=== PATIENT | male | born 1960 | race Caucasian/White ===

== ENCOUNTER 2021-01-27 09:13 | Emergency (ER) | payer OTHER, SELFPAY ==
[2021-01-27 09:25] VITALS: BP 155/108; PULSE 108; RESP 16; TEMP 35.5; O2SAT 96
--- NOTE | 2021-01-27 09:39 | ED.ANXIETY ---
HPI - Anxiety General Chief Complaint: Anxiety Stated Complaint: panick attack Source: patient and RN notes reviewed Mode of arrival: ambulatory Limitations: no limitations History of Present Illness HPI narrative: says patient states he has been having the worst anxiety that he has had in a long time. It has been going on for the last 2 days. He even tried some marijuana from an electronic cigarette but all it did was make his head spin did not really help his anxiety. He says he is just shaking all over. complaint: anxiety Onset (ago): day(s) (2) Severity: severe Quality: constant Place: home History of similar episodes: Yes Provoking factors: none known Relieving factors: nothing Exacerbating factors: nothing Associated symptoms: denies other symptoms Related Data Home Medications Medication Instructions Recorded Confirmed amitriptyline 100 mg PO HS 01/27/21 01/27/21 hydroxyzine pamoate 25 mg PO HS 01/27/21 01/27/21 trazodone 01/27/21 trazodone 50 mg PO HS 01/27/21 01/27/21 Allergies Allergy/AdvReac Type Severity Reaction Status Date / Time No Known Allergies Allergy Verified 01/27/21 09:30 Review of Systems Review of Systems: All systems reviewed & are unremarkable except as noted in HPI and below PMFSH Past Medical History Medical History (Updated 01/27/21 @ 11:31 by Peña Santos MD) Anxiety Surgical History Surgical History (Updated 01/27/21 @ 11:31 by Peña Santos MD) H/O shoulder surgery Previous back surgery left Social History Social History (Updated 01/27/21 @ 11:31 by Peña Santos MD) Smoking packs per day: 1.5 Smoking cigarettes per day: 30.0 Smoking status: Current every day smoker Tobacco type: cigarettes Substance use type: marijuana Exam Const: General: healthy appearing, no acute distress and alert Nutritional Appearance: well nourished Orientation/consciousness: patient oriented x3 HENMT: Head: normal to inspection Ears: external ears normal Mouth: Yes moist mucous membranes Eyes: Conjunctivae: conjunctivae normal Pupils: Equal, round and reactive pupils present EOM: EOMs intact bilaterally Neck: Neck: normal visual inspection Resp: Effort & Inspection: normal respiratory effort Auscultation: clear to auscultation bilaterally Cardio: Rate: regular rate and tachycardic GI: GI Palp: Yes Soft to palpation and No Tenderness to palpation present (GI) Auscultation: normal bowel sounds Back/Spine/Pelvis: Cervical Spine: cervical ROM normal Thoracic/Lumbar Spine: thoraco-lumbar ROM normal Skin: General skin exam: normal color Rashes: no rashes Neuro: General: patient oriented x3, moves all extremities, no meningeal signs, no focal motor deficits and CN's II-XI intact bilaterally Speech: normal speech Gait exam (Neuro): Normal gait present Extrem: General: normal to inspection and no clubbing, cyanosis or edema Psych: Appearance: grossly normal and well kempt Mental Status: mental status grossly normal Affect: Anxious affect present Attitude: cooperative Thought content: Yes Normal thought content present and No Suicidality present Course Vital Signs Vital signs: Vital Signs Temperature 35.5 C L 01/27/21 09:25 Pulse Rate 108 H 01/27/21 09:25 Respiratory Rate 16 01/27/21 09:25 Blood Pressure 155/108 H 01/27/21 09:25 Pulse Oximetry 96 01/27/21 09:25 Temperature 35.5 C L 01/27/21 09:25 Pulse Rate 88 01/27/21 11:11 Respiratory Rate 20 01/27/21 11:11 Blood Pressure 134/83 01/27/21 11:11 Pulse Oximetry 94 01/27/21 11:11 MDM - Anxiety Lab Data Labs: Lab Results 01/27/21 Range/Units 10:13 Urine Opiates Screen Negative (Negative) Urine Methadone Screen Negative (Negative) Ur Barbiturates Screen Negative (Negative) Ur Phencyclidine Scrn Negative (Negative) Ur Amphetamine Screen Negative (Negative) U Benzodiazepines Scrn Positive A (Negative) Urine Cocaine Scr
[2021-01-27] MEDS: chlordiazePOXIDE (*CRX) 25 MG CAPSULE PO (09:56)
--- NOTE | 2021-01-27 10:01 | PC.NURSE ---
Pt aware of need for urine specimen. Pt provided a urinal and shown where the restroom is. Pt states he will try here soon. Will continue to monitor.
[2021-01-27 10:02] VITALS: BP 140/91; PULSE 88; RESP 16; O2SAT 95
[2021-01-27 10:28] LABS: Amphetamine Screen Urine Negative (Negative); Barbiturate Screen Urine Negative (Negative); Benzodiazepines Screen Urine Positive (Negative); Cannabinoid Screen Urine Negative (Negative); Cocaine Screen Urine Negative (Negative); Methadone Screen Urine Negative (Negative); Opiate Screen Urine Negative (Negative); Phencyclidine Screen Urine Negative (Negative)
[2021-01-27 11:11] VITALS: BP 134/83; PULSE 88; RESP 20; O2SAT 94
--- NOTE | 2021-01-27 11:11 | PC.NURSE ---
Pt resting on stretcher. States he is feeling better and no longer shaking. Pt has walked to the restroom two times and was able to void. ERP made aware.
== END 2021-01-27 11:35 | disposition home or self-care (01) ==
PROVIDERS: Emergency Provider Emergency Medicine; PCP Family Medicine
DX: F41.9 Anxiety disorder, unspecified (principal); Z79.899 Other long term (current) drug therapy; F17.200 Nicotine dependence, unspecified, uncomplicated
CPT/HCPCS: 80307; 99283; A9270

== ENCOUNTER 2024-01-14 11:38 | Emergency (ER) | payer MEDICARE, SELFPAY ==
--- NOTE | ~2024-01-14 | XR_ITS ---
EXAMINATION: XR chest 1V portable DATE: 01/14/2024 11:53 INDICATION: Dyspnea 2 days post lung biopsy/lumpectomy TECHNIQUE: frontal view of the chest was obtained. COMPARISON: Chest radiograph dated 10/15/[address] dated 03/22/2018 FINDINGS: There is extensive subcutaneous edema at the left chest wall and bilaterally at the neck which mildly limits evaluation of fine pulmonary parenchymal detail in the left hemithorax. There is a region of consolidation at the junction of the left mid and lower lung zones. Small calcified nodules in the ri ght midlung zone consistent with old granulomatous disease. No definitive pleural effusion or pneumot horax. Heart size is normal. Status post distal left clavicle resection with suture anchors along the anteroinferior left glenoid suggestive of prior labral repair. IMPRESSION: 1. Region of consolidation at the junction of the left mid to lower lung zones which could represent atelectasis or pneumonia. 2. Extensive subcutaneous emphysema at the left chest wall and at the bilaterally at the base of the neck likely related to reported recent surgery. Reviewed, dictated and finalized at location A. [facility] IMPRESSION: 1. Region of consolidation at the junction of the left mid to lower lung zones which could represent atelectasis or pneumonia. 2. Extensive subcutaneous emphysema at the left chest wall and at the bilateral ly at the base of the neck likely related to reported recent surgery.
[2024-01-14 11:40] VITALS: BP 128/80; PULSE 88; RESP 20; TEMP 36.5; O2SAT 100
--- NOTE | 2024-01-14 11:48 | ED.GENADULT ---
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 He is having left sided chest pain at the incisions and pain with deep inspiration. Related Data Home Medications Medication Instructions Recorded Confirmed amitriptyline 100 mg tablet 100 mg PO HS 01/27/21 01/14/24 trazodone 50 mg tablet 50 mg PO HS 01/27/21 01/14/24 clonazepam 0.5 mg tablet 0.5 mg PO DAILY PRN Anxiety 01/14/24 01/14/24 escitalopram oxalate 10 mg tablet 10 mg PO DAILY 01/14/24 01/14/24 hydrocodone 5 mg-acetaminophen 325 1 tablet PO HS 01/14/24 01/14/24 mg tablet hydroxyzine HCl 25 mg tablet 25 mg PO TID 01/14/24 01/14/24 losartan 50 mg tablet 50 mg PO DAILY 01/14/24 01/14/24 rosuvastatin 40 mg tablet 40 mg PO HS 01/14/24 01/14/24 Allergies Allergy/AdvReac Type Severity Reaction Status Date / Time No Known Allergies Allergy Verified 01/14/24 11:54 Review of Systems Review of Systems: All systems reviewed & are unremarkable except as noted in HPI and below PMFSH Past Medical History Medical History Anxiety Surgical History Surgical History H/O shoulder surgery Previous back surgery left Social History Social History Smoking packs per day: 1.5 Smoking cigarettes per day: 30.0 Smoking status: Current every day smoker Tobacco type: cigarettes Substance use type: marijuana Exam Const: General: cooperative, healthy appearing, comfortable, no acute distress, well developed, alert, awake and Physically active Orientation/consciousness: oriented to person, oriented to place and oriented to time HENMT: Head: normal to inspection, normocephalic and atraumatic Ears: hearing grossly normal bilaterally and external ears normal Face/Nose/Sinus: Normal external nose present Eyes: General: appearance normal, both eyes and all related structures Periorbital: periorbital findings normal Sclera: sclerae normal Pupils: Equal, round and reactive pupils present Neck: Neck: normal visual inspection Chest: Chest palpation & inspection: normal inspection of the chest Resp: Effort & Inspection: normal respiratory effort, able to speak in complete sentences and no respiratory distress Auscultation: clear to auscultation bilaterally Cardio: Jugular venous distension: no JVD Rate: regular rate Rhythm: regular rhythm Skin: General skin exam: normal color and no rashes or lesions noted Other: 3 surgical incisions on the left lateral chest. The inferior anterior incision had dehisced Neuro: General: oriented to person, oriented to place and oriented to time Cranial nerves: Yes Equal, round and reactive pupils present Extrem: General: normal to inspection Course Course Emergency Course: EXAMINATION: XR chest 1V portable DATE: 01/14/2024 11:53 INDICATION: Dyspnea 2 days post lung biopsy/lumpectomy TECHNIQUE: frontal view of the chest was obtained. COMPARISON: Chest radiograph dated 10/15/[address] dated 03/22/2018 FINDINGS: There is extensive subcutaneous edema at the left chest wall and bilaterally at the neck which mildly limits evaluation of fine pulmonary parenchymal detail in the left hemithorax. There is a region of consolidation at the junction of the left mid and lower lung zones. Small calcified nodules in the right midlung zone consistent with old granulomatous disease. No definitive pleural effusion or pneumothorax. Heart size is normal. Status post distal left clavicle resection with suture anchors along the anteroinferior left glenoid suggestive of prior labral repair. IMPRESSION: 1. Region of consolidation at the junction of the left mid to lower lung zones which could represent atelectasis or pneumonia. 2. Extensive subcutaneous emphysema at the left chest wall and at the bilaterally at the base of the neck likely related to reported recent surgery. 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 العلي of CT surgery at [facility] who recommended bandaging it and f/u in clinic on Thursday. Vital Signs Vital signs: Vital Signs Temperature 97.7 F 01/14/24 11:40 Pulse Rate 88 01/14/24 11:40 Respiratory Rate 20 01/14/24 11:40 Blood Pressure 128/80 01/14/24 11:40 Pulse Oximetry 100 01/14/24 11:40 Oxygen Delivery Room Air 01/14/24 11:40 Temperature 97.7 F 01/14/24 11:40 Pulse Rate 88 01/14/24 11:40 Respiratory Rate 20 01/14/24 11:40 Blood Pressure 128/80 01/14/24 11:40 Pulse Oximetry 100 01/14/24 11:40 Oxygen Delivery Room Air 01/14/24 11:40 Medical Decision Making Vital Signs Vital Signs: Vital Signs Temperature 97.7 F 01/14/24 11:40 Pulse Rate 88 01/14/24 11:40 Respiratory Rate 20 01/14/24 11:40 Blood Pressure 128/80 01/14/24 11:40 Pulse Oximetry 100 01/14/24 11:40 Oxygen Delivery Room Air 01/14/24 11:40 Temperature 97.7 F 01/14/24 11:40 Pulse Rate 88 01/14/24 11:40 Respiratory Rate 20 01/14/24 11:40 Blood Pressure 128/80 01/14/24 11:40 Pulse Oximetry 100 01/14/24 11:40 Oxygen Delivery Room Air 01/14/24 11:40 Lab Data 01/14/24 11:57 01/14/24 11:57 Labs: Lab Results 01/14/24 Range/Units 11:57 WBC 13.0 H (4.8-10.8) K/mm3 RBC 5.45 (4.70-6.10) M/mm3 Hgb 16.2 (14.0-18.0) g/dL Hct 48.8 (40.0-54.0) % MCV 89.5 (78.0-102.0) fL MCH 29.7 (27.0-31.0) pg MCHC 33.2 (32-36) g/dL RDW 13.2 (11.6-14.4) % Plt Count 184 (150-420) K/mm3 MPV 10.0 (8.7-11.0) fl Immature Gran % (Auto) 0.7 H (0.0-0.0) % Neut % (Auto) 69.3 (50.0-70.0) % Lymph % (Auto) 22.5 (18.0-42.0) % [place] % (Auto) 6.8 (2.0-11.0) % Eos % (Auto) 0.5 L (1.0-6.0) % Baso % (Auto) 0.2 (0.0-1.0) % Lymph # (Auto) 2.92 (1.10-4.50) K/mm3 [place] # (Auto) 0.89 (0.10-0.90) K/mm3 Eos # (Auto) 0.07 (0.02-0.50) K/mm3 Baso # (Auto) 0.03 (0.00-0.10) K/mm3 Abs Immat Gran (auto) 0.09 H (0.00-0.00) K/mm3 Absolute Neuts (auto) 9.00 H (1.70-7.20) K/mm3 Absolute Nucleated RBC 0.00 (0.00-0.00) K/mm3 Nucleated RBC % 0.0 (0-0.0) % Sodium 139 (136-145) mmol/L Potassium 3.9 (3.5-5.1) mmol/L Chloride 98 (98-108) mmol/L Carbon Dioxide 38 H (21-32) mmol/L Anion Gap 3 L (4-12) mmol/L BUN 11 (7-18) mg/dL Creatinine 1.20 (0.70-1.30) mg/dL Estim Creat Clear Calc 71 ml/min Estimated GFR > 60 (59 - ) Glucose 126 H (70-99) mg/dL Calculated Osmolality 289 (285-295) mOsm/kg Calcium 8.3 L (8.5-10.1) mg/dL Total Bilirubin 0.6 (0.00-1.00) mg/dL AST 37 (15-37) U/L ALT 42 (16-63) U/L Alkaline Phosphatase 84 (46-116) U/L Troponin I 6.6 (0.00-60.4) ng/L Total Protein 7.1 (6.4-8.2) g/dL Albumin 3.3 L (3.4-5.0) g/dL Discharge Plan Discharge Clinical Impression: Pneumonia Patient Disposition: Home, Self-Care Condition: Stable Instructions: Antibiotic Form Prescriptions: New azithromycin 250 mg tablet 250 mg PO DAILY 4 Days Qty: 4 0RF Rx Instructions: start on day 2 of therapy amoxicillin-pot clavulanate 875-125 mg tablet 1 tablet PO Q12H Qty: 10 0RF No Action losartan 50 mg tablet 50 mg PO DAILY hydrocodone-acetaminophen 5-325 mg tablet 1 tablet PO HS hydroxyzine HCl 25 mg tablet 25 mg PO TID escitalopram oxalate 10 mg tablet 10 mg PO DAILY rosuvastatin 40 mg tablet 40 mg PO HS clonazepam 0.5 mg tablet 0.5 mg PO DAILY PRN (Reason: Anxiety) trazodone 50 mg tablet 50 mg PO HS amitriptyline 100 mg tablet 100 mg PO HS chlordiazepoxide HCl 10 mg capsule 10 mg PO TID PRN (Reason: anxiety) Qty: 14 0RF Follow-up/Referrals: UNKNOWN,DOCTOR [Primary Care Provider] -
--- NOTE | 2024-01-14 11:50 | ECG_ITS ---
Test Date: 2024-01-14 12:10:43 Measurements Intervals [place] Rate: 83 P: 43 MA: 181 QRS: -6 QRSD: 142 T: 72 QT: 365 QTc: 430 Interpretive Statements SINUS RHYTHM RIGHT BUNDLE BRANCH BLOCK BASELINE ARTIFACT- I, II, III, AVR, AVL, AVF ABNORMAL ECG No previous ECG available for comparison Electronically Signed On 01-14-2024 17:52:25 FINANCIAL REP by Delbert Ramey D.O.
[2024-01-14 12:00] LABS: Basophils Absolute Auto 0.03 K/mm3 (0.00-0.10); Basophils Percent Auto 0.2 % (0.0-1.0); Eosinophils Absolute Auto 0.07 K/mm3 (0.02-0.50); Eosinophils Percent Auto 0.5 % (1.0-6.0); Hematocrit 48.8 % (40.0-54.0); Hemoglobin 16.2 g/dL (14.0-18.0); Immature Granulocyte Absolute 0.09 K/mm3 (0.00-0.00); Immature Granulocyte Percent A 0.7 % (0.0-0.0); Lymphocytes Absolute Auto 2.92 K/mm3 (1.10-4.50); Lymphocytes Percent Auto 22.5 % (18.0-42.0); Mean Corpuscular HGB Conc 33.2 g/dL (32-36); Mean Corpuscular Hemoglobin 29.7 pg (27.0-31.0); Mean Corpuscular Volume 89.5 fL (78.0-102.0); Monocytes Absolute Auto 0.89 K/mm3 (0.10-0.90); Monocytes Percent Auto 6.8 % (2.0-11.0); Neutrophils Percent Auto 69.3 % (50.0-70.0); Platelet Count Result 184 K/mm3 (150-420); Red Blood Count 5.45 M/mm3 (4.70-6.10); Red Cell Distribution Width 13.2 % (11.6-14.4)
[2024-01-14 12:19] LABS: Alanine Aminotransferase 42 U/L (16-63); Albumin Level 3.3 g/dL (3.4-5.0); Alkaline Phosphatase 84 U/L (46-116); Anion Gap 3 mmol/L (4-12); Aspartate Amino Transferase 37 U/L (15-37); Bilirubin,Total 0.6 mg/dL (0.00-1.00); Blood Urea Nitrogen 11 mg/dL (7-18); Calcium 8.3 mg/dL (8.5-10.1); Carbon Dioxide 38 mmol/L (21-32); Chloride 98 mmol/L (98-108); Estimated CRCL calculation 71 ml/min; Estimated Glomerular Filt Rate > 60; Glucose 126 mg/dL (70-99); Osmolality Calculated 289 mOsm/kg (285-295); Potassium 3.9 mmol/L (3.5-5.1); Sodium 139 mmol/L (136-145); Total Protein 7.1 g/dL (6.4-8.2)
[2024-01-14] MEDS: MORPHINE SULFATE (*CRX) 4 MG/ML INJ IM (12:23)
[2024-01-14] MEDS: AZITHROMYCIN 250 MG TABLET 500 MG PO (12:23)
[2024-01-14 12:24] LABS: Troponin I 6.6 ng/L (0.00-60.4)
[2024-01-14] MEDS: AMOXICILLIN/CLAVULANATE K 875-125 MG TAB 1 TABLET PO (12:25)
[2024-01-14 13:06] VITALS: BP 113/69; PULSE 83; RESP 18; TEMP 36.5; O2SAT 94
== END 2024-01-14 13:06 | disposition home or self-care (01) ==
PROVIDERS: Emergency Provider Family Medicine
DX: J18.9 Pneumonia, unspecified organism (principal); T81.30XA Disruption of wound, unspecified, initial encounter; I25.10 Atherosclerotic heart disease of native coronary artery without angina pectoris; E78.5 Hyperlipidemia, unspecified; I10 Essential (primary) hypertension; F17.210 Nicotine dependence, cigarettes, uncomplicated; Z79.899 Other long term (current) drug therapy; Z79.891 Long term (current) use of opiate analgesic
CPT/HCPCS: 36415; 71045; 80053; 84484; 85025; 93005; 96372; 99284; A9270; J2270

== ENCOUNTER 2024-01-17 03:21 | Emergency (ER) | payer MEDICARE, SELFPAY ==
[2024-01-17] VITALS (12 sets, daily range): BP systolic 117–157; BP diastolic 70–96; PULSE 73–85; RESP 16–23; TEMP 36.6–37; O2SAT 92–100
--- NOTE | ~2024-01-17 | XR_ITS ---
EXAMINATION: XR chest 1V portable DATE: 01/17/2024 03:36 INDICATION: Chest pain. TECHNIQUE: A single frontal view of the chest was obtained. COMPARISON: Chest single view 01/14/2024, chest CT 01/17/2024 FINDINGS: There are airspace opacities in left mid and lower lung zones. No pleural effusion or pneum othorax. The heart size is normal. There is soft tissue gas in the neck and left chest wall. There ar e suture anchors in the left scapula. IMPRESSION: 1. Airspace opacities in left mid and lower lung zones with mild worsening, consistent with atelectas is/scarring versus pneumonia. 2. Soft tissue gas in the neck and left chest wall with interval improvement. Reviewed, dictated and finalized at location A. D ADMINISTRATIVE ASSISTANT IMPRESSION: 1. Airspace opacities in left mid and lower lung zones with mild worsening, con sistent with atelectasis/scarring versus pneumonia. 2. Soft tissue gas in the neck and left chest wall with interval improvement.
--- NOTE | ~2024-01-17 | CT_ITS ---
EXAMINATION: CTA chest PE protocol DATE: 01/17/2024 04:50 INDICATION: Shortness of breath. TECHNIQUE: Computed tomography angiography (CTA) of the chest was performed with 100 mL Omnipaque-350 intravenous contrast timed to evaluate the pulmonary arteries. Coronal maximum intensity projection 3D-reconstructions were created by the technologist. Automated exposure control and iterative reconst ruction technique were employed. The dose-length product was 1007.48 mGy-cm. COMPARISON: Chest CT 03/22/2018 FINDINGS: A calcified right lung nodule is consistent with old granulomatous disease. There is a smal l left pleural effusion. There is a staple line in left lung upper lobe. There are patchy groundglass opacities in left lung upper lobe. There are airspace opacities in left lung upper lobe in the area of staple line with area of cavitation. The heart size is normal. No pericardial effusion. There is n o pulmonary embolus. Calcifications in the spleen are consistent with old granulomatous disease. Ther e is a small volume of pneumomediastinum. There is extensive soft tissue gas in the neck and left naveen st wall. There is mild chronic anterior wedging of multiple vertebral bodies. There is moderate thora cic spondylosis. IMPRESSION: 1. No pulmonary embolus. 2. Airspace opacities and patchy groundglass opacities in left lung upper lobe, consistent with scarr ing and superimposed pneumonia versus focal pulmonary edema. 3. Small left pleural effusion. 4. Pneumomediastinum and neck and left chest wall subcutaneous emphysema. Reviewed, dictated and finalized at location A. E RACETRACK MANAGER IMPRESSION: 1. No pulmonary embolus. 2. Airspace opacities and patchy groundglass opacities in left lung upper lobe, consistent with scarring and superimposed pneumonia versus focal pulmonary darnell ma. 3. Small left pleural effusion. 4. Pneumomediastinum and neck and left chest wall subcutaneous emphysema.
--- NOTE | 2024-01-17 03:35 | ECG_ITS ---
Test Date: 2024-01-17 03:45:05 Measurements Intervals [place] Rate: 80 P: 65 MT: 202 QRS: -12 QRSD: 121 T: 47 QT: 334 QTc: 387 Interpretive Statements SINUS RHYTHM INDETERMINATE AXIS POSSIBLE RIGHT VENTRICULAR CONDUCTION DELAY [RSR (QR) IN V1/V2] NONSPECIFIC ST & T-WAVE ABNORMALITY ABNORMAL ECG Electronically Signed On 01-18-2024 08:49:50 [employer] by Shady Alcantar M.D.
[2024-01-17 03:40] LABS: Basophils Absolute Auto 0.04 K/mm3 (0.00-0.10); Basophils Percent Auto 0.3 % (0.0-1.0); Eosinophils Absolute Auto 0.12 K/mm3 (0.02-0.50); Hematocrit 49.7 % (40.0-54.0); Hemoglobin 16.5 g/dL (14.0-18.0); Immature Granulocyte Absolute 0.17 K/mm3 (0.00-0.00); Immature Granulocyte Percent A 1.4 % (0.0-0.0); Lymphocytes Absolute Auto 3.16 K/mm3 (1.10-4.50); Lymphocytes Percent Auto 25.8 % (18.0-42.0); Mean Corpuscular HGB Conc 33.2 g/dL (32-36); Mean Corpuscular Hemoglobin 29.4 pg (27.0-31.0); Mean Corpuscular Volume 88.4 fL (78.0-102.0); Mean Platelet Volume 9.7 fl (8.7-11.0); Monocytes Absolute Auto 0.86 K/mm3 (0.10-0.90); Neutrophils Absolute Auto 7.88 K/mm3 (1.70-7.20); Neutrophils Percent Auto 64.5 % (50.0-70.0); Platelet Count Result 192 K/mm3 (150-420); Red Blood Count 5.62 M/mm3 (4.70-6.10); White Blood Count 12.2 K/mm3 (4.8-10.8)
[2024-01-17] MEDS: ASPIRIN 81 MG CHEWABLE TABLET 324 MG PO (03:48)
[2024-01-17] MEDS: NITROGLYCERIN SL 0.4 MG TABLET SUBLINGUAL (03:50)
[2024-01-17 03:53] LABS: D Dimer 1.23 mg/L (0.19-0.50)
[2024-01-17 04:07] LABS: Alanine Aminotransferase 54 U/L (16-63); Alkaline Phosphatase 104 U/L (46-116); Anion Gap 4 mmol/L (4-12); Aspartate Amino Transferase 32 U/L (15-37); Bilirubin,Total 0.3 mg/dL (0.00-1.00); Blood Urea Nitrogen 5 mg/dL (7-18); Calcium 9.3 mg/dL (8.5-10.1); Carbon Dioxide 35 mmol/L (21-32); Chloride 96 mmol/L (98-108); Estimated CRCL calculation 72 ml/min; Estimated Glomerular Filt Rate > 60; Glucose 145 mg/dL (70-99); NT Pro B Type Natriuretic Pept 25 pg/mL (0-125); Osmolality Calculated 280 mOsm/kg (285-295); Potassium 4.1 mmol/L (3.5-5.1); Sodium 135 mmol/L (136-145); Total Protein 7.1 g/dL (6.4-8.2); Troponin I < 4.0 ng/L (0.00-60.4)
[2024-01-17] MEDS: KETOROLAC 30 MG/ML VIAL (*BKC) IV PUSH (04:11)
--- NOTE | 2024-01-17 04:35 | PC.NURSE ---
Pt resting, back from CT and will await CTA results. VSS, monitor shows NSR, continuing to monitor.
--- NOTE | 2024-01-17 05:13 | PC.NURSE ---
Report given to ERP Dr Campbell, pt will need transfer back to [facility].
--- NOTE | 2024-01-17 05:25 | PC.NURSE ---
Pt resting w/ family at bedside. Pt still c/o intense Lt sided c/p and difficulty taking deep breath. New order received for pain med. Awaiting call back from [facility] pulmonology.
[2024-01-17] MEDS: HYDROmorphone HCL INJ (*CRX) 2 MG/ML VIAL 0.5 MG IV PUSH (05:28)
--- NOTE | 2024-01-17 05:40 | PC.NURSE ---
ERP Dr Campbell in to speak w/ pt and family about consult w/ Dr العلي. POC discussed w/ pt for d/c home, pain management and f/u w/ next week in clinic.
--- NOTE | 2024-01-17 05:43 | ED.CHESTPAIN ---
HPI - Chest Pain General Chief Complaint: Chest Pain Stated Complaint: SHORTNESS OF BREATH, ABDOMINAL PAIN Time Seen by Provider: 01/17/24 03:29 Source: patient Mode of arrival: ambulatory Limitations: no limitations History of Present Illness HPI narrative: Patient is 61-year-old male with significant past medical history that presents today with chest pain. Patient says that he recently on Thursday which was 3 days ago had surgery on his left forearm. He had multiple nodules removed from the left lung. He said he was having some pain after the surgery that continued to get worse and then he was seen here yesterday for the pain. He said they did an x-ray and they diagnosed with pneumonia and he was sent home he was given antibiotics here with not sent home on antibiotics and was sent home on pain medication. He says the pain is gone a lot worse and is unbearable. MD complaint: chest pain Pertinent past history: other ( Multiple pulmonary nodules removed) Onset (ago): day(s) Timing of current episode: constant Prior episodes: Yes Onset: during rest Pain location: substernal, left chest, right chest and parasternal Pain radiation: none Severity: severe Pain scale (0-10): 10 Quality: tightness and sharp Relieving factors: nothing Exacerbating factors: exertion and inspiration Context: recent surgery Treatment prior to arrival: none Related Data Home Medications Medication Instructions Recorded Confirmed amitriptyline 100 mg tablet 100 mg PO HS 01/27/21 01/14/24 trazodone 50 mg tablet 50 mg PO HS 01/27/21 01/14/24 clonazepam 0.5 mg tablet 0.5 mg PO DAILY PRN Anxiety 01/14/24 01/14/24 escitalopram oxalate 10 mg tablet 10 mg PO DAILY 01/14/24 01/14/24 hydrocodone 5 mg-acetaminophen 325 1 tablet PO HS 01/14/24 01/14/24 mg tablet hydroxyzine HCl 25 mg tablet 25 mg PO TID 01/14/24 01/14/24 losartan 50 mg tablet 50 mg PO DAILY 01/14/24 01/14/24 rosuvastatin 40 mg tablet 40 mg PO HS 01/14/24 01/14/24 Allergies Allergy/AdvReac Type Severity Reaction Status Date / Time No Known Allergies Allergy Verified 01/14/24 11:54 Review of Systems Review of Systems: All systems reviewed & are unremarkable except as noted in HPI and below Constitutional: Constitutional: Reports as per HPI Eyes: Eyes: Reports no additional eye complaints ENT: Reports system reviewed and no additional complaints, except as documented Cardiovascular: Cardiovascular: Reports no additional cardiovascular complaints Respiratory: Respiratory: Reports as per HPI, Reports hemoptysis, Reports pain on inspiration, Reports pain with cough and Reports dyspnea Gastrointestinal: Gastrointestinal: Reports no additional gastrointestinal complaints Genitourinary: Genitourinary: Reports no additional male genitourinary complaints Musculoskeletal: Musculoskeletal: Reports no additional musculoskeletal complaints Integumentary/Breasts: Skin/Breast: Reports system reviewed and no additional complaints, except as docu Neurologic: Reports system reviewed and no additional complaints, except as documented Psychiatric: Psychiatric: Reports no additional psychiatric complaints Endocrine: Endocrine: Reports no additional endocrine complaints Hematologic/Lymphatic: Hematologic/Lymphatic: Reports no additional hematologic/lymphatic complaints Allergic/Immunologic: Allergic/Immunologic: Reports no additional allergic/immunologic complaints PMFSH Past Medical History Medical History Anxiety Surgical History Surgical History H/O shoulder surgery Previous back surgery left Social History Social History Smoking packs per day: 1.5 Smoking cigarettes per day: 30.0 Smoking status: Current every day smoker Tobacco type: cigarettes Substance use type: marijuana Exam Const: General: cooperative, healthy appearing and comfortable HENMT: Head: normal to inspection and No palpable skull fracture present Ears: hearing grossly normal bilaterally and external ears normal Eyes: General: appearance normal, both eyes and all related structures EOM: EOMs intact bilaterally Neck: Neck: normal visual inspection, full ROM and no lymphadenopathy Chest: Chest palpation & inspection: crepitus and localized rib tenderness with anteroposterior compression Resp: Effort & Inspection: able to speak in complete sentences, abnormal respiratory pattern, Actively coughing and tachypneic Auscultation: bronchovesicular breath sounds Cardio: Jugular venous distension: no JVD Palpation: normal PMI Rate: regular rate Rhythm: regular rhythm GI: Inspection: normal to inspection, abdominal wall ecchymosis and Abdominal wall edema Back/Spine/Pelvis: Back: no CVA tenderness Cervical Spine: normal cervical lordosis Thoracic/Lumbar Spine: thoracic and lumbar spine normal to inspection Skin: General skin exam: normal color, no rashes or lesions noted and elasticity normal Neuro: General: oriented to person, oriented to place, oriented to time and patient oriented x3 Extrem: General: normal to inspection, full ROM, capillary refill normal and normal exam except as noted Psych: Appearance: grossly normal and well kempt Course Reevaluation(s) Reevaluation #1: D-dimer was elevated will do CTA the chest. Date: 01/17/24 Time: 03:30 Reevaluation #2: Spoke to the cardiothoracic surgeon at [facility] about the CTA findings which showed a postoperative pneumomediastinum and body wall emphysema which is where his pain is most likely coming from. The cardiothoracic surgeon said that this is normal postoperative changes and he is not worried about a PE does not think that he has a PE and to just get his pain under control and have him follow-up in their office early next week. The CTA showed motion degraded no large central pulmonary embolism and I spoke to the radiologist who said he could not definitely at least say there is no distal and small pulmonary emboli cannot be excluded because of the motion artifact. But the cardiothoracic surgeon says do not scanned again there is very low chance of this and 2 she has had a follow-up in the office early next week. Date: 01/17/24 Time: 05:57 Vital Signs Vital signs: Vital Signs Pulse Rate 81 01/17/24 03:25 Pulse Oximetry 98 01/17/24 03:25 Oxygen Delivery Room Air 01/17/24 03:25 Temperature 98.6 F 01/17/24 03:29 Pulse Rate 73 01/17/24 05:16 Respiratory Rate 16 01/17/24 05:16 Blood Pressure 120/77 01/17/24 05:16 Pulse Oximetry 96 01/17/24 05:16 Oxygen Delivery Room Air 01/17/24 04:01 MDM - Chest Pain MDM Narrative Medical decision making narrative: Patient recently had surgery with a remove multiple nodules of his left lung. This surgery could include possible outcomes of a new we asked him home, PE, or even a tension pneumo. Will do a chest x-ray 1st and do a D-dimer. If D-dimer is elevated will do a CTA of the chest. Also did blood work with this as well. D-dimer was elevated will do CTA chest. CC is chest showed motion artifact showed no large emboli but cannot exclude small emboli, did show he has a new mediastinum probably postsurgical complication. This most likely was pain is coming from. Spoke to cardiothoracic surgeon read course note on this. Differential Diagnosis Differential diagnosis: Likely other ( pneumomediastinum) Medical Records Data Attestation: I reviewed the patient's medical records. Lab Data Attestation: I reviewed the patient's lab results. 01/17/24 03:27 01/17/24 03:27 Labs: Lab Results 01/17/24 01/17/24 Range/Units 03:27 03:34 WBC 12.2 H (4.8-10.8) K/mm3 RBC 5.62 (4.70-6.10) M/mm3 Hgb 16.5 (14.0-18.0) g/dL Hct 49.7 (40.0-54.0) % MCV 88.4 (78.0-102.0) fL MCH 29.4 (27.0-31.0) pg MCHC 33.2 (32-36) g/dL RDW 13.0 (11.6-14.4) % Plt Count 192 (150-420) K/mm3 MPV 9.7 (8.7-11.0) fl Immature Gran % (Auto) 1.4 H (0.0-0.0) % Neut % (Auto) 64.5 (50.0-70.0) % Lymph % (Auto) 25.8 (18.0-42.0) % Coleman % (Auto) 7.0 (2.0-11.0) % Eos % (Auto) 1.0 (1.0-6.0) % Baso % (Auto) 0.3 (0.0-1.0) % Lymph # (Auto) 3.16 (1.10-4.50) K/mm3 Coleman # (Auto) 0.86 (0.10-0.90) K/mm3 Eos # (Auto) 0.12 (0.02-0.50) K/mm3 Baso # (Auto) 0.04 (0.00-0.10) K/mm3 Abs Immat Gran (auto) 0.17 H (0.00-0.00) K/mm3 Absolute Neuts (auto) 7.88 H (1.70-7.20) K/mm3 Absolute Nucleated RBC 0.00 (0.00-0.00) K/mm3 Nucleated RBC % 0.0 (0-0.0) % D-Dimer 1.23 H* (0.19-0.50) mg/L Sodium 135 L (136-145) mmol/L Potassium 4.1 (3.5-5.1) mmol/L Chloride 96 L (98-108) mmol/L Carbon Dioxide 35 H (21-32) mmol/L Anion Gap 4 (4-12) mmol/L BUN 5 L (7-18) mg/dL Creatinine 1.16 (0.70-1.30) mg/dL Estim Creat Clear Calc 72 ml/min Estimated GFR > 60 (59 - ) Glucose 145 H (70-99) mg/dL Calculated Osmolality 280 L (285-295) mOsm/kg Calcium 9.3 (8.5-10.1) mg/dL Total Bilirubin 0.3 (0.00-1.00) mg/dL AST 32 (15-37) U/L ALT 54 (16-63) U/L Alkaline Phosphatase 104 (46-116) U/L Troponin I < 4.0 (0.00-60.4) ng/L NT-Pro-B Natriuret Pep 25 (0-125) pg/mL Total Protein 7.1 (6.4-8.2) g/dL Albumin 3.0 L (3.4-5.0) g/dL Imaging Data Attestation: I personally reviewed and interpreted this imaging study as follows: Discharge Plan Discharge Clinical Impression: Pneumomediastinum, Chest pain Patient Disposition: Home, Self-Care Condition: Stable Instructions: Chest Wall Pain (ED) Additional Instructions: take pain medication as needed. Call the cardiothoracic office with a morning 1st thing and get in for an appointment. If any worsening of symptoms and worsening shortness of breath please return to the emergency department for another CTA scan. Prescriptions: New hydrocodone-acetaminophen 10-325 mg tablet 1 tablet PO Q6H PRN (Reason: pain) Qty: 14 0RF No Action losartan 50 mg tablet 50 mg PO DAILY hydrocodone-acetaminophen 5-325 mg tablet 1 tablet PO HS hydroxyzine HCl 25 mg tablet 25 mg PO TID escitalopram oxalate 10 mg tablet 10 mg PO DAILY rosuvastatin 40 mg tablet 40 mg PO HS clonazepam 0.5 mg tablet 0.5 mg PO DAILY PRN (Reason: Anxiety) azithromycin 250 mg tablet 250 mg PO DAILY 4 Days Qty: 4 0RF Rx Instructions: start on day 2 of therapy amoxicillin-pot clavulanate 875-125 mg tablet 1 tablet PO Q12H Qty: 10 0RF trazodone 50 mg tablet 50 mg PO HS amitriptyline 100 mg tablet 100 mg PO HS chlordiazepoxide HCl 10 mg capsule 10 mg PO TID PRN (Reason: anxiety) Qty: 14 0RF Follow-up/Referrals: Jeovany Marrero M.D. [Primary Care Provider] - Time of Disposition: 06:02
== END 2024-01-17 06:05 | disposition home or self-care (01) ==
PROVIDERS: Emergency Provider Family Medicine; PCP Family Medicine
DX: J98.2 Interstitial emphysema (principal); R07.9 Chest pain, unspecified; F17.210 Nicotine dependence, cigarettes, uncomplicated; Z79.899 Other long term (current) drug therapy; Z79.891 Long term (current) use of opiate analgesic
CPT/HCPCS: 36415; 71045; 71275; 80053; 83880; 84484; 85025; 85380; 93005; 96374; 96375; 99284; A9270; J1171; J1885; Q9967

== ENCOUNTER 2024-01-27 12:36 | Emergency (ER) | payer MEDICARE, SELFPAY ==
--- NOTE | ~2024-01-27 | CT_ITS ---
EXAMINATION: CT diagnostic chest wo con DATE: 01/27/2024 13:36 INDICATION: recent left lingulectomy,LT SIDE CLICKING SENSATION TECHNIQUE: Computed tomography (CT) of the chest was performed without intravenous contrast. Addition al 3D reconstructions utilizing coronal maximum intensity projection (MIP) were performed. The dose- length product was 517.88 mGy-cm. COMPARISON: 01/17/2024 FINDINGS: Persistent small left pleural effusion. Postoperative change of prior lingulectomy with peripheral pl eural parenchymal scarring along a suture line at the inferior aspect of the left upper lobe. Partial collapse of a previously seen small cavitary likely pneumatocele along the suture line. Mild depende nt atelectasis in the left lower lobe. Calcified right middle lobe nodule along with calcified right hilar and mediastinal lymph nodes consistent with old granulomatous disease. No pneumonia, pulmonary edema, pneumothorax or right-sided pleural effusion. Heart size is normal. No pericardial effusion. T horacic aorta is normal in caliber. No pathologically enlarged thoracic lymphadenopathy. Significant interval decrease in the prior extensive left chest wall subcutaneous emphysema with residual small foci of gas along the superficial margin of the left pectoralis, serratus anterior and trapezius musc les. The prior pneumomediastinum has resolved. The visualized upper abdomen is unremarkable. Moderate thoracic spondylosis with chronic mild anterior wedging at T6-T8 and at T12. IMPRESSION: 1. Postoperative change of prior lingulectomy with persistent pleural-parenchymal scarring along the suture line at the inferior left upper lobe. 2. Unchanged small left pleural effusion. 3. Significant decrease in previously large now small amount of postoperative subcutaneous emphysema at the left chest wall. Reviewed, dictated and finalized at location A. RWATER HUNTER TRAPPER IMPRESSION: 1. Postoperative change of prior lingulectomy with persistent pleural-parenchym al scarring along the suture line at the inferior left upper lobe. 2. Unchanged small left pleural effusion. 3. Significant decrease in previously large now small amount of postoperative s ubcutaneous emphysema at the left chest wall.
[2024-01-27 12:39] VITALS: BP 135/94; PULSE 85; RESP 20; TEMP 36.9; O2SAT 96
--- NOTE | 2024-01-27 12:49 | ED_ITS ---
HPI - Chest Pain General Chief Complaint: Chest Pain Stated Complaint: rib pain Source: patient and family Mode of arrival: ambulatory Limitations: no limitations History of Present Illness HPI narrative: 63-year-old male, smoker with a history of hypertension, anxiety / depression, dyslipidemia, chronic low back pain status post surgery without any improvement, coronary artery disease with a cardiac catheterization in 2019 which revealed nonocclusive coronary is, was diagnosed to have a left lingular mass status post resection and lymph node dissectionon 01/12/2024. He presented to our ED on [place] 10/06/2023 for chest pain and chest wall did wound dehiscence. He was noted to have left-sided pneumonia and subcutaneous emphysema for which he received Augmentin and Zithromax. He returned to our ED on 01/17/2024 for ongoing left-sided chest pain. He had a CTA of the chest which was negative for PE but revealed pneumonia/ GGON the left upper lobe with left pleural effusion along with pneumomediastinum and subcutaneouws emphysema. The patient presents today with --ongoing left-sided chest pain Which is worse with breathing. -- Cough with mucopurulent sputum -- constipation no fever or chills MD complaint: chest pain Pertinent past history: coronary artery disease and other ( recent left lung lingular resection) Onset (ago): week(s) ( 2 weeks) Timing of current episode: constant Prior episodes: Yes Pain location: left chest Pain radiation: none Severity: severe Quality: sharp Relieving factors: nothing Exacerbating factors: inspiration Treatment prior to arrival: other ( pain medication) Risk Factors Coronary artery disease risk factors: smoking history and hypertension Thoracic aortic dissection risk factors: longstanding hypertension Pulmonary embolism risk factors: recent surgery Related Data Home Medications ?Medication ?Instructions ?Recorded ?Confirmed ?Last Taken ?Type amitriptyline 100 mg tablet 100 mg PO HS 01/27/21 01/14/24 Unknown History trazodone 50 mg tablet 50 mg PO HS 01/27/21 01/14/24 Unknown History clonazepam 0.5 mg tablet 0.5 mg PO DAILY PRN Anxiety 01/14/24 01/14/24 Unknown History escitalopram oxalate 10 mg tablet 10 mg PO DAILY 01/14/24 01/14/24 Unknown History hydrocodone 5 mg-acetaminophen 325 1 tablet PO HS 01/14/24 01/14/24 Unknown History mg tablet hydroxyzine HCl 25 mg tablet 25 mg PO TID 01/14/24 01/14/24 Unknown History losartan 50 mg tablet 50 mg PO DAILY 01/14/24 01/14/24 Unknown History rosuvastatin 40 mg tablet 40 mg PO HS 01/14/24 01/14/24 Unknown History Allergies Allergy/AdvReac Type Severity Reaction Status Date / Time No Known Allergies Allergy Verified 01/27/24 12:50 Review of Systems 2 Review of Systems: All systems reviewed & are unremarkable except as noted in HPI and below Constitutional: Constitutional: Reports as per HPI and Reports no additional constitutional complaints Eyes: Eyes: Reports as per HPI and Reports no additional eye complaints ENT: Reports system reviewed and no additional complaints, except as documented and Reports as per HPI Cardiovascular: Cardiovascular: Reports as per HPI, Reports no additional cardiovascular complaints and Reports chest pain Respiratory: Respiratory: Reports as per HPI and Reports no additional respiratory complaints Comments: left-sided pleuritic chest pain. Left chest wall operative site appears to have healed Gastrointestinal: Gastrointestinal: Reports as per HPI, Reports no additional gastrointestinal complaints and Reports constipation Genitourinary: Genitourinary: Reports no additional male genitourinary complaints and Reports as per HPI Musculoskeletal: Musculoskeletal: Reports no additional musculoskeletal complaints and Reports as per HPI Integumentary/Breasts: Skin/Breast: Reports system reviewed and no additional complaints, except as docu and Reports as per HPI Comments: left chest wall incision sites looks healed. Neurologic: Reports system reviewed and no additional complaints, except as documented and Reports as per HPI Psychiatric: Psychiatric: Reports no additional psychiatric complaints and Reports as per HPI Endocrine: Endocrine: Reports no additional endocrine complaints and Reports as per HPI Hematologic/Lymphatic: Hematologic/Lymphatic: Reports no additional hematologic/lymphatic complaints and Reports as per HPI Allergic/Immunologic: Allergic/Immunologic: Reports no additional allergic/immunologic complaints and Reports as per HPI PMFSH Past Medical History Medical History Lung mass Anxiety Surgical History Surgical History H/O shoulder surgery Previous back surgery left Social History Social History Smoking packs per day: 1.5 Smoking cigarettes per day: 30.0 Smoking status: Current every day smoker Tobacco type: cigarettes Substance use type: marijuana Exam 2 Narrative: afebrile. Oxygen saturation of 96% on room air with a respiratory rate of 20. Const: General: ill appearing Nutritional Appearance: well nourished O rientation/consciousness: patient oriented x3 Limitations: no limitations HENMT: Head: normal to inspection Ears: external ears normal F parris/Nose/Sinus: Normal external nose present Face and sinus: normal facial exam Mouth: Yes Normal oral and palatal mucosa present Throat: posterior oropharynx normal Eyes: Conjunctivae: conjunctivae normal Pupils: Equal, round and reactive pupils present EOM: EOMs intact bilaterally Direct Ophthalmoscopy: no photophobia Neck: Neck: normal visual inspection, no lymphadenopathy and no meningeal signs Chest: Chest palpation & inspection: normal inspection of the chest Resp: Effort & Inspection: normal respiratory effort Other: Left chest wall tenderness decreased breath sounds over the left lung. Pleural rub over the left lung left lateral chest wall incisions look healthy. Cardio: Rate: regular rate Rhythm: regular rhythm GI: Auscultation: normal bowel sounds Rectal Exam: normal sphincter tone Other: No tenderness/ rigidity / rebound. : General: Yes no CVA tenderness Back/Spine/Pelvis: Back: no CVA tenderness Skin: General skin exam: normal color Rashes: no rashes Wounds: no wounds ( Left chest wall incisions) Neuro: General: patient oriented x3, moves all extremities, no meningeal signs, no focal motor deficits and CN's II-XI intact bilaterally Cranial nerves: Yes Nystagmus not present Speech: normal speech Gait exam (Neuro): Normal gait present Extrem: General: normal to inspection Psych: Mental Status: mental status grossly normal Affect: normal affect Attitude: cooperative Course Course Emergency Course: left chest wall pain / subQ emphysema/pneumomediastinum /pneumonia status post left lingulectomy on 01/12/24 CT of the chest revealed resolution of the pneumomediastinum. Decrease in size of the left subcu emphysema. Persistent left pleural effusion. Scarring of the pleural parenchymal region along prior suture line. Vital Signs Vital signs: Vital Signs Oxygen Delivery Room Air 01/27/24 12:36 Temperature 36.6 C 01/27/24 14:21 Pulse Rate 68 01/27/24 14:21 Respiratory Rate 20 01/27/24 14:21 Blood Pressure 127/77 01/27/24 14:21 Pulse Oximetry 95 01/27/24 14:21 Oxygen Delivery Room Air 01/27/24 14:21 MDM - Chest Pain MDM Narrative Medical decision making narrative: Status post left lingual ectomy decrease of left subcu emphysema scarring of the left parenchymal junction at the suture line Differential Diagnosis Differential diagnosis: Likely fracture of rib, pneumothorax and stable angina Medical Records Data Attestation: I reviewed the patient's medical records. Lab Data Attestation: I reviewed the patient's lab results. 01/27/24 13:22 01/27/24 13:22 Labs: Lab Results 01/27/24 Range/Units 13:22 WBC 11.8 H (4.8-10.8) K/mm3 RBC 5.38 (4.70-6.10) M/mm3 Hgb 15.8 (14.0-18.0) g/dL Hct 47.0 (40.0-54.0) % MCV 87.4 (78.0-102.0) fL MCH 29.4 (27.0-31.0) pg MCHC 33.6 (32-36) g/dL RDW 13.2 (11.6-14.4) % Plt Count 250 (150-420) K/mm3 MPV 9.2 (8.7-11.0) fl Immature Gran % (Auto) 1.7 H (0.0-0.0) % Neut % (Auto) 64.7 (50.0-70.0) % Lymph % (Auto) 18.3 (18.0-42.0) % Wolfe % (Auto) 7.6 (2.0-11.0) % Eos % (Auto) 6.9 H (1.0-6.0) % Baso % (Auto) 0.8 (0.0-1.0) % Lymph # (Auto) 2.15 (1.10-4.50) K/mm3 Wolfe # (Auto) 0.89 (0.10-0.90) K/mm3 Eos # (Auto) 0.81 H (0.02-0.50) K/mm3 Baso # (Auto) 0.09 (0.00-0.10) K/mm3 Abs Immat Gran (auto) 0.20 H (0.00-0.00) K/mm3 Absolute Neuts (auto) 7.63 H (1.70-7.20) K/mm3 Absolute Nucleated RBC 0.00 (0.00-0.00) K/mm3 Nucleated RBC % 0.0 (0-0.0) % Sodium 134 L (136-145) mmol/L Potassium 4.5 (3.5-5.1) mmol/L Chloride 99 (98-108) mmol/L Carbon Dioxide 28 (21-32) mmol/L Anion Gap 7 (4-12) mmol/L BUN 9 (7-18) mg/dL Creatinine 1.13 (0.70-1.30) mg/dL Estim Creat Clear Calc 75 ml/min Estimated GFR > 60 (59 - ) Glucose 104 H (70-99) mg/dL Calculated Osmolality 276 L (285-295) mOsm/kg Lactic Acid 0.7 (0.4-2.0) mmol/L Calcium 8.5 (8.5-10.1) mg/dL Total Bilirubin 0.4 (0.00-1.00) mg/dL AST 23 (15-37) U/L ALT 33 (16-63) U/L Alkaline Phosphatase 96 (46-116) U/L Troponin I 7.7 (0.00-60.4) ng/L NT-Pro-B Natriuret Pep 42 (0-125) pg/mL Total Protein 6.8 (6.4-8.2) g/dL Albumin 3.1 L (3.4-5.0) g/dL Discharge Plan Discharge Clinical Impression: Pleurisy, Postprocedural subcutaneous emphysema Patient Disposition: Home, Self-Care Condition: Stable Instructions: Antibiotic Form, Pleurisy (ED) Patient Language: Portuguese Prescriptions: No Action losartan 50 mg tablet 50 mg PO DAILY hydrocodone-acetaminophen 5-325 mg tablet 1 tablet PO HS hydroxyzine HCl 25 mg tablet 25 mg PO TID escitalopram oxalate 10 mg tablet 10 mg PO DAILY rosuvastatin 40 mg tablet 40 mg PO HS clonazepam 0.5 mg tablet 0.5 mg PO DAILY PRN (Reason: Anxiety) azithromycin 250 mg tablet 250 mg PO DAILY 4 Days Qty: 4 0RF Rx Instructions: start on day 2 of therapy amoxicillin-pot clavulanate 875-125 mg tablet 1 tablet PO Q12H Qty: 10 0RF hydrocodone-acetaminophen 10-325 mg tablet 1 tablet PO Q6H PRN (Reason: pain) Qty: 14 0RF trazodone 50 mg tablet 50 mg PO HS amitriptyline 100 mg tablet 100 mg PO HS chlordiazepoxide HCl 10 mg capsule 10 mg PO TID PRN (Reason: anxiety) Qty: 14 0RF Follow-up/Referrals: UNKNOWN,DOCTOR [Non-Staff] - Time of Disposition: 15:08
--- NOTE | 2024-01-27 13:00 | PC.NURSE ---
dr walsh in with pt
--- NOTE | 2024-01-27 13:09 | ECG_ITS ---
Test Date: 2024-01-27 13:25:25 Measurements Intervals [place] Rate: 75 P: 52 CT: 212 QRS: 46 QRSD: 125 T: 46 QT: 358 QTc: 400 Interpretive Statements SINUS RHYTHM WITH FIRST DEGREE AV BLOCK INCOMPLETE RIGHT BUNDLE BRANCH BLOCK MODERATE INTRAVENTRICULAR CONDUCTION DELAY [110+ ms QRS DURATION] ST ELEVATION, PROBABLY EARLY REPOLARIZATION [ST ELEVATION WITH NORMALLY INFLECTED T-WAVE] Compared to ECG 01/17/2024 03:45:05 NO SIGNIFICANT CHANGES Electronically Signed On 01-28-2024 16:46:21 CLOCKMAKER by Nimisha Hall M.D.
[2024-01-27 13:27] LABS: Basophils Absolute Auto 0.09 K/mm3 (0.00-0.10); Basophils Percent Auto 0.8 % (0.0-1.0); Eosinophils Absolute Auto 0.81 K/mm3 (0.02-0.50); Eosinophils Percent Auto 6.9 % (1.0-6.0); Hemoglobin 15.8 g/dL (14.0-18.0); Immature Granulocyte Percent A 1.7 % (0.0-0.0); Lymphocytes Absolute Auto 2.15 K/mm3 (1.10-4.50); Lymphocytes Percent Auto 18.3 % (18.0-42.0); Mean Corpuscular HGB Conc 33.6 g/dL (32-36); Mean Corpuscular Hemoglobin 29.4 pg (27.0-31.0); Mean Corpuscular Volume 87.4 fL (78.0-102.0); Mean Platelet Volume 9.2 fl (8.7-11.0); Monocytes Absolute Auto 0.89 K/mm3 (0.10-0.90); Monocytes Percent Auto 7.6 % (2.0-11.0); Neutrophils Absolute Auto 7.63 K/mm3 (1.70-7.20); Neutrophils Percent Auto 64.7 % (50.0-70.0); Platelet Count Result 250 K/mm3 (150-420); Red Blood Count 5.38 M/mm3 (4.70-6.10); Red Cell Distribution Width 13.2 % (11.6-14.4); White Blood Count 11.8 K/mm3 (4.8-10.8)
[2024-01-27 13:47] LABS: Lactic Acid Reflex 0.7 mmol/L (0.4-2.0)
[2024-01-27 13:51] LABS: Alanine Aminotransferase 33 U/L (16-63); Albumin Level 3.1 g/dL (3.4-5.0); Alkaline Phosphatase 96 U/L (46-116); Anion Gap 7 mmol/L (4-12); Aspartate Amino Transferase 23 U/L (15-37); Bilirubin,Total 0.4 mg/dL (0.00-1.00); Blood Urea Nitrogen 9 mg/dL (7-18); Calcium 8.5 mg/dL (8.5-10.1); Carbon Dioxide 28 mmol/L (21-32); Chloride 99 mmol/L (98-108); Estimated CRCL calculation 75 ml/min; Estimated Glomerular Filt Rate > 60; Glucose 104 mg/dL (70-99); NT Pro B Type Natriuretic Pept 42 pg/mL (0-125); Osmolality Calculated 276 mOsm/kg (285-295); Potassium 4.5 mmol/L (3.5-5.1); Sodium 134 mmol/L (136-145); Total Protein 6.8 g/dL (6.4-8.2); Troponin I 7.7 ng/L (0.00-60.4)
[2024-01-27 14:21] VITALS: BP 127/77; PULSE 68; RESP 20; TEMP 36.6; O2SAT 95
--- NOTE | 2024-01-27 14:41 | PC.NURSE ---
1315 pt resting per cot, daughter in room with pt. [address] results[address] no needs call gutierrez in reach 1430 dr walsh in with pt.
--- NOTE | 2024-01-27 15:10 | PC.NURSE ---
dr walsh in with patient to discuss discharge plan
[2024-01-27 15:16] VITALS: BP 142/92; PULSE 72; RESP 18; TEMP 36.6; O2SAT 99
== END 2024-01-27 15:17 | disposition home or self-care (01) ==
PROVIDERS: Emergency Provider Internal Medicine Critical Care Medicine; PCP Family Medicine
DX: R09.1 Pleurisy (principal); T81.82XA Emphysema (subcutaneous) resulting from a procedure, initial encounter; Y83.8 Other surgical procedures as the cause of abnormal reaction of the patient, or of later complication, without mention of misadventure at the time of the procedure; I10 Essential (primary) hypertension; I25.10 Atherosclerotic heart disease of native coronary artery without angina pectoris; F17.210 Nicotine dependence, cigarettes, uncomplicated; Z79.899 Other long term (current) drug therapy
CPT/HCPCS: 36415; 71250; 80053; 83605; 83880; 84484; 85025; 93005; 99284

== ENCOUNTER 2024-06-07 15:21 | Outpatient (CLI) | payer MEDICARE, SELFPAY ==
--- NOTE | ~2024-06-07 | XR_ITS ---
CHEST RADIOGRAPH, PA AND LATERAL CLINICAL HISTORY: chest wall pain, left, left lung mass removed on . COMPARISON: 01/17/2024 TECHNIQUE: PA and lateral views of the chest. FINDINGS The cardiomediastinal silhouette is partially obscured. The right hemithorax is clear. Good visualization of the left upper lobe. Fluid opacifies the left lung base, which depending on the surgery (left lower lobectomy?), may be an expected finding. IMPRESSION: Fluid within the left lung base, which may be an expected finding given patient's recent operative in tervention (commonly seen post lobectomy). Reviewed, dictated and finalized at location A. IMPRESSION: Fluid within the left lung base, which may be an expected finding given patient 's recent operative intervention (commonly seen post lobectomy).
--- OUTSIDE RECORDS SUMMARY | 2024-06-07 17:32 | XMS_ITS | Clinical Summary ---
Author Organization [facility] Address [address] 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
--- OUTSIDE RECORDS SUMMARY | 2024-06-07 17:32 | XMS_ITS | Encounter Summary ---
Author Organization [facility] Address 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 Gender Identity Not on file Sexual Orientation Not on file documented as of this encounter Plan of Treatment Not on file documented as of this encounter Procedures Procedure Name Priority Date/Time Associated Diagnosis Comments CT ABDOMEN PELVIS WO CONTRAST Stat 04/27/2007 7:26 PM CDT XR CHEST PA AND LATERAL 2 VW Stat 04/27/2007 6:35 PM CDT documented in this encounter Results * CT ABDOMEN PELVIS WO CONTRAST (04/27/2007 7:26 PM CDT) Anatomical Region Laterality Modality Abdomen Other 04/27/2007 7:26 PM CDT Narrative 04/27/2007 8:20 PM CDT [address] [address] Imaging Services Procedure Completion Date Ordering Provider Accession Number CT Abd/Pelvis w/o 04/27/2007 7:33:12 DARIAN SALMERON [id number] Contrast PM Reason for Exam: fall Interpretation CT OF THE ABDOMEN AND CT OF THE PELVIS WITHOUT CONTRAST MATERIAL, 04/27/2007 Clinical History: Fall, left upper side pain. The abdomen and pelvis were examined in the axial scan plane at 5 mm intervals without intravenous contrast material. Findings: The lung bases are clear and there is no pneumothorax. There is no evidence for free air or free fluid. Noncontrast images of the liver, spleen, kidneys, and gallbladder are normal aside from some tiny splenic calcifications which are considered physiological. There is food material in the stomach. The adrenal glands and pancreas appear unremarkable. The urinary bladder also appears normal. Portions of a normal appearing appendix are visualized. Conclusion: Negative examination. . 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 The abdomen and pelvis were examined in the axial scan plane at 5mm intervals without intravenous contrast material. Findings: The lung bases are clear and there is no pneumothorax. There is noevidence for free air or free fluid. Noncontrast images of the liver, spleen, kidneys, and gallbladderare normal aside from some tiny splenic calcifications which areconsidered physiological. There is food material in the stomach. The adrenalglands and pancreas appear unremarkable. The urinary bladder also appearsnormal. Portions of a normal appearing appendix are visualized. Conclusion: Negative examination. . Dictated by: LOPEZ LAMAR 04/27/2007 19:50 Electronically signed by: LOPEZ LAMAR 04/27/2007 20:20 Transcribed: 04/27/2007 19:55 SMM Admit Date: 04/27/2007 ABELARDO PEREZ Sex: M Admitting MD: PRATIK BORJAS Birthdate: 1960 journeyman painter: CMRN:[id number] Room: [facility]: [phone] ORDERABLES Final Result * XR CHEST PA AND LATERAL (04/27/2007 6:35 PM CDT) Anatomical Region Laterality Modality Chest Other 04/27/2007 6:35 PM CDT Narrative 11/21/2008 2:32 AM CDT CHEST X-RAY 2 VIEWS, 04/27/2007 History: Fall with pain. Findings: Examination is not performed in bone technique and therefore if there are any areas of the bony thorax which are of concern clinically for fracture, specific views of this area using bone technique is recommended. No pneumothorax or acute congestive change. No focal infiltrates or pleural effusions. On the lateral view, there is a small nodular density anteriorly. This may be a density seen on the right in the mid chest. This is probably a granuloma but it would be helpful to follow this up to confirm this is a granuloma and document stability. It would be most cost effective and helpful to obtain prior chest x-rays for comparison. If prior chest x-rays cannot be obtained, some type of followup such as CT of the chest or repeat chest x-ray in 2-3 months would be recommended. Summary: No acute process is seen. Small nodule, possibly a granuloma. Followup is recommended. See above comments. . CHEST X-RAY 2 VIEWS, 04/27/2007 History: Fall with pain.Findings: Examination is not performed in bone technique and therefore if there are any areas of the bony thorax which are of concern clinically for fracture, specific views of this area using bone technique is recommended. No pneumothorax or acute congestive change. No focal infiltrates or pleural effusions. On the lateral view, there is a small nodular density anteriorly. This may be a density seen on the right in the mid chest. This is probably a granuloma but it would be helpful to follow this up to confirm this is a granuloma and document stability. It would be most cost effective and helpful to obtain prior chest x- rays for comparison. If prior chest x-rays cannot be obtained, some type of followup such as CT of the chest or repeat chest x-ray in 2-3 months would be recommended.Summary: No acute process is seen.Small nodule, possibly a granuloma. Followup is recommended. See above comments.. Procedure Note Provider, Historical - 12/08/2008 CHEST X-RAY 2 VIEWS, 04/27/2007 History: Fall with pain. Findings: Examination is not performed in bone technique and therefore if there areany areas of the bony thorax which are of concern clinically for fracture, specific views of this areausing bone technique is recommended. No pneumothorax or acute congestive change. No focalinfiltrates or pleural effusions. On the lateral view, there is a small nodular density anteriorly. This may thai density seen on the right in the mid chest. This is probably a granuloma but it would be helpful tofollow this up to confirm this is a granuloma and document stability. It would be most cost effective andhelpful to obtain prior chest x-rays for comparison. If prior chest x-rays cannot be obtained, some typeof followup such as CT of the chest or repeat chest x-ray in 2-3 months would be recommended. Summary: No acute process is seen. Small nodule, possibly a granuloma. Followup is recommended. See abovecomments. . CHEST X-RAY 2 VIEWS, 04/27/2007 History: Fall with pain.Findings:Examination is not performed in bone technique and therefore if there are any areas of the bony thorax whichare of concern clinically for fracture, specific views of this area using bone technique is recommended.No pneumothorax or acute congestive change. No focal infiltrates or pleural effusions. On thelateral view, there is a small nodular density anteriorly. This may be a density seen on the right in themid chest. This is probably a granuloma but it would be helpful to follow this up to confirm this is agranuloma and document stability. It would be most cost effective and helpful to obtain priorchest x- rays for comparison. If prior chest x-rays cannot be obtained, some type of followup such as CT ofthe chest or repeat chest x-ray in 2-3 months would be recommended.Summary: No acute process isseen.Small nodule, possibly a granuloma. Followup is recommended. See above comments.. Darian Salmeron MD DIAGNOSTIC IMAGING ORDERABLES F inal Result documented in this encounter Visit Diagnoses Not on filedocumented in this encounter
--- OUTSIDE RECORDS SUMMARY | 2024-06-07 17:32 | XMS_ITS | Encounter Summary ---
Author Organization [facility] Address [address] [place] [address] Care Team Providers Care Automatic Driller And Reamer Name Role Phone Unavailable Primary Care Provider Unavailabl e Encounter Details Date Type Department Care Team (Late st Contact Info) Description 02/25/2007 Outpatient Historical [facility], Authorized P NO ADDRESS ON FILE Martinez Fernandes MD [address] [facility] 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
--- OUTSIDE RECORDS SUMMARY | 2024-06-07 17:32 | XMS_ITS | Encounter Summary ---
Author Organization [facility] Address 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 Gender Identity Not on file Sexual Orientation Not on file documented as of this encounter Plan of Treatment Not on file documented as of this encounter Procedures Procedure Name Priority Date/Time Associated Diagnosis Comments XR FINGERS Routine 03/23/2007 8:52 PM SENIOR ASIC ENGINEER documented in this encounter Results * XR FINGERS (03/23/2007 8:52 PM SENIOR ASIC ENGINEER) Anatomical Region Laterality Modality Other 03/23/2007 8:52 PM SENIOR ASIC ENGINEER Narrative 03/24/2007 8:51 AM SENIOR ASIC ENGINEER [address] [address] Imaging Services Procedure Completion Date Ordering Provider Accession Number FINGERS LEFT 03/23/2007 8:52:28 JAZ TELLEZ [id number] PM Reason for Exam: pain,crushed Interpretation Left hand and fingers 3 views 03/23/2007 History: Pain and injury Findings: Compared to prior study of 25 February 2007 metal fixation is again seen in the distal finger with orthopedic pins in the distal and middle phalanx. One of 3 pins on previous exam has been removed. Two remain. No definite interval change is otherwise seen. No fracture changes are definitely appreciated. Fracture of the base of the distal phalanx appears similar in position to prior examination. Summary: Previous open reduction and internal fixation of distal phalanx fracture. Findings as discussed above. No additional fractures are seen. . Dictated by: AN STEIN 03/24/2007 06:03 Electronically signed by: AN STEIN 03/24/2007 08:51 Transcribed: 03/24/2007 07:12 AMK Admit Date: 03/23/2007 ABELARDO PEREZ Sex: M Admitting MD: JAZ TELLEZ Birthdate: 1960 pediatric psychiatrist: YANELISN:[id number] Room: [facility]: [address] [place] [address] Procedure Note Provider, Historical - 03/24/2007 [facility] [address] [address] Imaging Services Procedure Completion Date Ordering Provider AccessionNumber FINGERS LEFT 03/23/2007 8:52:28 JAZ TELLEZ [id number] PM Reason for Exam: pain,crushed Interpretation Left hand and fingers 3 views 03/23/2007 History: Pain and injury Findings: Compared to prior study of 25 February 2007 metal fixationis again seen in the distal finger with orthopedic pins in the distaland middle phalanx. One of 3 pins on previous exam has been removed.Two remain. No definite interval change is otherwise seen. No fracturechanges are definitely appreciated. Fracture of the base of the distalphalanx appears similar in position to prior examination. Summary: Previous open reduction and internal fixation of distalphalanx fracture. Findings as discussed above. No additional fractures areseen. . Dictated by: AN STEIN 03/24/2007 06:03 Electronically signed by: AN STEIN 03/24/2007 08:51 Transcribed: 03/24/2007 07:12 AMK Admit Date: 03/23/2007 ABELARDO PEREZ Sex: M Admitting MD: JAZ TELLEZ Birthdate: 1960 pediatric psychiatrist: YANELISN:[id number] Room: [facility]: [address] [place] [address] Jaz Tellez MD DIAGNOSTIC IMAGING ORDERAB LES Final Result documented in this encounter Visit Diagnoses Not on filedocumented in this encounter
== END 2024-06-07 15:22 | disposition home or self-care (01) ==
LOC: CHSIMG 15:26
PROVIDERS: PCP Family Medicine; Visit Provider Thoracic Surgery (Cardiothoracic Vascular Surgery)
DX: R07.89 Other chest pain (principal)
CPT/HCPCS: 71046